=== PATIENT | female | born 1945 | race Caucasian/White ===

== ENCOUNTER → 2017-03-30 | Outpatient (CLI) | payer MEDICARE, OTHER ==
[~2017-03-30] MED LIST: ASPI-1441 PO; IOPAMIDOL 76% 75 ML INFUS BTL 75 ML ONE; LEV75 PO; MULT-1335 PO; NS 0.9% 150 ML BAG 150 ML ONE; QUIN5TAB19 PO
--- NOTE | 2017-03-30 13:11 | RADIOLOGY IMAGING REPORT ---
[facility] PATIENT NAME: Pam Hernandez : 1945 MR: [id number] V: [id number] EXAM DATE: ORDERING PHYSICIAN: NALDO MCELROY TECHNOLOGIST: Location: [facility] Patient: Pam Hernandez : 1945 Visit/Account:[id number] Date of Sevice: 03/30/2017 ABDOMEN/PELVIS W/WO CONTRAST Provided history: Right upper quadrant and left upper quadrant pain. Nausea. Additional pertinent history: none TECHNIQUE: Spiral scan was obtained from the lower chest through the symphysis with intravenous cont rast Contrast dose: 75 mL Isovue 370 intravenously. Source images were reformatted in the coronal and sagittal planes. Additional series performed today: none One of the following dose optimization techniques was utilized in the performance of this exam: Autom ated exposure control; adjustment of the mA and/or kV according to the patient's size; or use of an i terative reconstruction technique. Specific details can be referenced in the facility's radiology CT exam operational policy. COMPARISON STUDIES: none FINDINGS: Lower chest: Uppermost image reveals a micronodule directly anterior to the lateral margin right winnie r fissure, very likely benign but not fully included. Liver/biliary: Negative Pancreas: Negative Spleen: Negative Adrenal glands: Negative Kidneys / ureters / bladder / genitourinary / retroperitoneum: There are no stones in either kidney o r the course of the ureters. There is a mildly prominent upper pole infundibulum on the left without dilation of the upper pole calyces. There is an extrarenal pelvis of both kidneys, symmetric from monse e to side. Ureters demonstrate normal course and caliber. Bladder wall is thin and smooth. No filling defect. There is a pessary in the vagina. Pelvic floor height is maintained. Bowel / peritoneum / mesenteries: There is a large volume of stool retained throughout the colon. No transmural inflammatory disease. Normal air-filled appendix is demonstrated. Proximal small bowel mesentery demonstrates a complete twist but no edema, dependent bowel dilation, wall thickening or hyperenhancement. Vessels: negative Lymph nodes: negative Body wall: negative Bones: There are bilateral pars defects at L5 with 8 mm lytic spondylolisthesis L5 on S1. The right f oramen is moderately compromised. Left foramen mildly compromised. There is moderate scoliosis convex right apex L2. IMPRESSION: 1. Large volume of stool retained throughout the colon without transmural inflammatory disease or obs tructing lesion. 2. There is a full twist in the upper small bowel mesentery but without evidence of inflammation or o bstruction. This is usually not significant unless the patient has correlating symptoms of intermitte nt volvulus. 3. Grade 1 lytic spondylolisthesis L5-S1 with moderate compromise of the right foramen. Scoliosis als o noted. Report Dictated By: Eloy Daley MD at 03/30/2017 12:58 PM Report E-Signed By: Eloy Daley MD at 03/30/2017 1:06 PM WSN:[id number]
--- NOTE | 2017-03-30 17:33 | RADIOLOGY IMAGING REPORT ---
[place] [facility] [place]IENT NAME: JAYE SELLERS : [id number] MR: [id number] V: [id number] EXAM DATE: ORDERING PHYSICIAN: NALDO MCELROY TECHNOLOGIST: Jemma Lackey PROCEDURE:BILATERAL DIGITAL SCREENING MAMMOGRAM WITH CAD ASSISTED INTERPRETATION & 3D TOMOSYNTHESIS COMPARISON:Prior mammograms 01/17/16, 10/18/14, 09/08/13, 08/07/11, 06/26/10 INDICATIONS:SCREENING FINDINGS: Extremely dense heterogeneous fibroglandular tissue is seen throughout the breasts. The parenchymal pattern has remained stable allowing for difference in mammographic technique & patient positioning. There is no evidence of malignant appearing mass, malignant appearing calcifications or other secondary sign of malignancy in either breast. DIAGNOSTIC CATEGORY 2--BENIGN FINDING. RECOMMENDATIONS: ROUTINE MAMMOGRAM AND CLINICAL EVALUATION. IMPRESSION: BIRADS 2: Benign finding No significant abnormality is seen Dictated by: Megan Akhtar M.D. on 03/30/2017 at 15:28 Transcribed by: LITTLE on 03/30/2017 at 15:45 Approved by: Megan Akhtar M.D. on 03/30/2017 at 17:32 [facility]
== END ==
LOC: CT 07:26
PROVIDERS: ATTEND Family Medicine
DX: Z12.31 Encounter for screening mammogram for malignant neoplasm of breast (principal); M41.9 Scoliosis, unspecified; K56.41 Fecal impaction; K56.2 Volvulus
CPT/HCPCS: 74178; 77063; 77067; Q9967